=== PATIENT | female | born 1995 | race Caucasian/White ===

== ENCOUNTER 2017-03-23 15:22 | Emergency (ER) | payer SELFPAY ==
[~2017-03-23] VITALS: Ht 160 cm; Wt 63.5 kg
[~2017-03-23 15:22] MED LIST: DOCU-109 PO; FAMO20TA5 PO; FERR325T72 PO; IBUP-1060 PO
[2017-03-23 16:04] VITALS: BP 109/63
--- NOTE | 2017-03-23 16:21 | PHYS DOC ---
Past Medical History Past Medical History: No Pertinent History Past Surgical History: No Surgical History Alcohol Use: None Drug Use: None Adult General Chief Complaint Chief Complaint: EARACHE/EAR PAIN [facility] HPI Patient is a 21 year old female presents emergency department stating she is having right ear pain and discomfort since Monday. She states that she feels as though it's clogged. It is having pain into her neck area. She denies any fever, chills or any nausea or vomiting. She does state that she used Imitrex removal in her urine yesterday although did not obtain very much wax. Patient states she has decreased hearing in the right ear as well. Review of Systems Review of Systems Constitutional: Denies fever or chills [] Eyes: Denies change in visual acuity, redness, or eye pain [] HENT: Denies nasal congestion or sore throat. Complaint of right ear pain and discomfort Respiratory: Denies cough or shortness of breath [] Cardiovascular: No additional information not addressed in HPI [] GI: Denies abdominal pain, nausea, vomiting, bloody stools or diarrhea [] : Denies dysuria or hematuria [] Musculoskeletal: Denies back pain or joint pain [] Integument: Denies rash or skin lesions [] Neurologic: Denies headache, focal weakness or sensory changes [] Endocrine: Denies polyuria or polydipsia [] Allergies Allergies Allergies Coded Allergies Type Severity Reaction Last Updated Verified No Known Drug Allergies 05/28/16 No Physical Exam Physical Exam Constitutional: Well developed, well nourished, no acute distress, non-toxic appearance. [] HENT: Normocephalic, atraumatic, bilateral external ears normal, oropharynx moist, no oral exudates, nose normal. Left tympanic membrane normal. Right tympanic membrane unable to visualize due to cerumen impaction. Patient with no anterior cervical adenopathy. Throat clear no redness no exudate no erythematous noted uvula with no deviation. Eyes: PERRLA, EOMI, conjunctiva normal, no discharge. [] Neck: Normal range of motion, no tenderness, supple, no stridor. [] Cardiovascular:Heart rate regular rhythm, no murmur [] Lungs & Thorax: Bilateral breath sounds clear to auscultation [] Skin: Warm, dry, no erythema, no rash. [] Back: No tenderness Extremities: No tenderness, no cyanosis, no clubbing, ROM intact, no edema. [] Neurologic: Alert and oriented X 3, normal motor function, normal sensory function, no focal deficits noted. [] Psychologic: Affect normal, judgement normal, mood normal. [] Current Patient Data Vital Signs Vital Signs Date Time Temp Pulse Resp B/P (MAP) Pulse Ox O2 Delivery O2 Flow Rate FiO2 03/23/17 16:04 98.8 71 16 99 Room Air 98.8 EKG EKG [] Radiology/Procedures Radiology/Procedures [] Course & Med Decision Making Course & Med Decision Making Pertinent Labs and Imaging studies reviewed. (See chart for details) Review year was irrigated reexamined with no cerumen impaction noted. There appears to be slightly red to the irrigation. Recommended Tylenol and ibuprofen for fever chills generalized body aches and discomfort. Patient will be discharged home in stable condition signs symptoms to return back to emergency department as been provided. Patient agrees with discharge instructions treatment regimens and follow-up recommendations. [] Dragon Disclaimer Dragon Disclaimer This electronic medical record was generated, in whole or in part, using a voice recognition dictation system. Departure Departure Impression: Primary Impression: Impacted cerumen of right ear Disposition: HOME, SELF-CARE Condition: STABLE Referrals: NO PCP (PCP) Patient Instructions: Cerumen Impaction-SportsMed Additional Instructions: Activity as tolerated. Tylenol or ibuprofen for pain and discomfort. Debrox may be used [id number] to help with relief of earwax. Follow-up to primary care physician as needed. Return back to emergency prior signs symptoms of become worse SUSANNAH PHAM COTTON CLASSER Mar 23, 2017 16:21
== END 2017-03-23 16:49 | disposition home or self-care (01) ==
LOC: ER 15:22
DX: H61.21 Impacted cerumen, right ear (principal)
CPT/HCPCS: 69209; 99282

== ENCOUNTER 2017-09-03 15:07 | Emergency (ER) | payer OTHER ==
[~2017-09-03] VITALS: Ht 162.6 cm; Wt 63.5 kg
[2017-09-03 15:29] VITALS: BP 144/86
[2017-09-03] MEDS ORDERED: ORPHENADRINE CITRATE 60 MG/2 ML VIAL. IM ONE (15:30)
[2017-09-03] MEDS ORDERED: KETOROLAC 60 MG/2 ML INJ. IM ONE (15:30)
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
[2017-09-03] MEDS ORDERED: NAPR-683 PO (16:01)
[2017-09-03] MEDS ORDERED: CYCL10TA2 PO (16:01)
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
== END 2017-09-03 16:10 | disposition home or self-care (01) ==
LOC: ER 15:07
DX: S46.911A Strain of unspecified muscle, fascia and tendon at shoulder and upper arm level, right arm, initial encounter (principal); V49.59XA Passenger injured in collision with other motor vehicles in traffic accident, initial encounter; Y93.9 Activity, unspecified; Y99.8 Other external cause status; Y92.488 Other paved roadways as the place of occurrence of the external cause
CPT/HCPCS: 73030; 96372; 99284; J1885; J2360